=== PATIENT | female | born 1995 | race Caucasian/White ===

== ENCOUNTER 2018-10-31 02:52 | Emergency (ER) | payer MEDICAID, OTHER ==
[2018-10-31 03:02] VITALS: BP 135/79
--- NOTE | 2018-10-31 03:26 | ER Document Report ---
ED General - General Chief Complaint: Vaginal Pain Stated Complaint: DISCOMFORT Time Seen by Provider: 10/31/18 03:05 TRAVEL OUTSIDE OF THE [place] IN LAST 30 DAYS: No - HPI Notes: Patient is a 23-year-old female that presents to the emergency department for chief complaint of vaginal rash. Patient reports history of getting bumps in her inguinal area after shaving. She states she has had pimples in her inguinal area for the last few days. She denies any drainage or pain. She denies any fevers or chills. She denies any vaginal discharge or bleeding. Patient states she recently became sexually active with 3 partners and would like to be tested for STDs. She denies any known exposure or symptom of STD. Patient is particularly concerned that she may have syphilis. She also is complaining of a cough for the last 2-3 weeks. She does smoke tobacco daily. She denies any fevers. Past Medical History: Negative Past Surgical History: Negative Social History: Daily tobacco. Denies drugs and alcohol Family History: Reviewed and noncontributory for presenting illness Allergies: Reviewed, see documented allergy list. REVIEW OF SYSTEMS: CONSTITUTIONAL : No fever No chills No diaphoresis No recent illness EENT: No vision changes congestion No sore throat CARDIOVASCULAR: No chest pain No palpitations RESPIRATORY: No shortness of breath cough No difficulty breathing GASTROINTESTINAL: No abdominal pain No nausea No vomiting No diarrhea GENITOURINARY: No dysuria No hematuria No difficulty urinating MUSCULOSKELETAL: No back pain No leg pain No arm pain SKIN: rashes lesions LYMPHATIC: No swollen, enlarged glands. NEUROLOGICAL: No lightheadedness No headache No weakness No paresthesias PSYCHIATRIC: No anxiety No depression PHYSICAL EXAMINATION: Vital signs reviewed, nursing noted reviewed. GENERAL: Well-appearing, well-nourished and in no acute distress. HEAD: Atraumatic, normocephalic. EYES: Eyes appear normal, extraocular movements intact, sclera anicteric, conjunctiva are normal. ENT: nares patent, oropharynx clear without exudates. Moist mucous membranes. NECK: Normal range of motion, supple without lymphadenopathy LUNGS: Breath sounds clear to auscultation bilaterally and equal. No wheezes rales or rhonchi. HEART: Regular rate and rhythm without murmurs ABDOMEN: Soft, nontender, normoactive bowel sounds. No rebound, guarding, or rigidity. No masses appreciated. : External vaginal exam shows no pustules or vesicles. Patient has 2 small areas of irritated hair follicle in her suprapubic region. EXTREMITIES: Nontender, good range of motion, no pitting or edema. NEUROLOGICAL: No focal neurological deficits. Moves all extremities spontaneously Motor and sensory grossly intact on exam. PSYCH: Normal mood, normal affect. SKIN: Warm, Dry, normal turgor. Past Medical History - Social History Smoking Status: Current Every Day Smoker Family History: Reviewed & Not Pertinent Physical Exam - Vital signs Vitals: Temp Pulse Resp BP Pulse Ox 98.4 F 112 H 16 135/79 H 98 10/31/18 02:58 10/31/18 02:58 10/31/18 02:58 10/31/18 02:58 10/31/18 02:58 Course - Re-evaluation Re-evalutation: 10/31/18 03:26 Vitals reviewed. Nursing notes reviewed. Patient has normal lung sounds and is afebrile. I do not clinically suspect pneumonia. She is a daily smoker and was counseled on smoking cessation. She will be given albuterol inhaler for her cough. She has requested syphilis testing which was performed today. Patient is otherwise asymptomatic of any STDs without any known exposure. I informed her if she would like to have further STD testing on a routine basis that she should see the health department or [employer]. Patient has 2 small irritated hair follicles with no cellulitis. Antibiotics are not currently indicated. She will be discharged home in stable condition. Patient will follow up with her syphilis testing tomorrow. - Vital Signs Vital signs: Temp Pulse Resp BP Pulse Ox 98.4 F 112 H 16 135/79 H 98 10/31/18 02:58 10/31/18 02:58 10/31/18 02:58 10/31/18 02:58 10/31/18 02:58 Discharge - Discharge Clinical Impression: Cough, Rash Condition: Stable Disposition: HOME, SELF-CARE Instructions: Family Physicians / Practices, Folliculitis ([facility]), Chest Wall Pain ([facility]) Prescriptions: Albuterol Sulfate [Proair HFA Inhalation Aerosol 8.5 gm MDI] 2 puff IH Q4H PRN # 1 mdi PRN Reason: Forms: Smoking Cessation Education Referrals: MOUNIKA VILLATORO MD [Primary Care Provider] - Follow up in 3-5 days [facility] [Provider Group] - Follow up as needed
== END 2018-10-31 03:32 | disposition home or self-care (01) ==
LOC: ER 02:52
DX: R21 Rash and other nonspecific skin eruption (principal); R10.2 Pelvic and perineal pain; R05 Cough; Z20.2 Contact with and (suspected) exposure to infections with a predominantly sexual mode of transmission
CPT/HCPCS: 36415; 86592; 99283